=== PATIENT | female | born 1955 | race Caucasian/White ===

== ENCOUNTER → 2024-06-19 | Outpatient (CLI) | payer MEDICARE, SELFPAY ==
[2024-06-19 13:58] LABS: Basophils # (Auto) 0.1 Thou/mm3 (0.0-0.2); Basophils % (Auto) 1 % (0-2.5); Eosinophils # (Auto) 0.2 Thou/mm3 (0.0-0.5); Eosinophils % (Auto) 2 % (0-10); Hematocrit 42.5 % (36.0-46.0); Hemoglobin 14.2 g/dL (12.0-16.0); Immature Granulocytes % (Auto) 0 % (0-0); Immature Granulocytes Auto 0.03 Thou/mm3 (0.00-0.00); Lymphocytes # (Auto) 2.1 Thou/mm3 (1.0-4.8); Lymphocytes % (Auto) 22 % (10-50); Mean Corpuscular HGB Conc 33.4 g/dl (31.0-37.0); Mean Corpuscular Hemoglobin 29.3 pg (25.0-35.0); Mean Corpuscular Volume 88 fL (80-100); Monocytes # (Auto) 0.8 Thou/mm3 (0.0-0.8); Monocytes % (Auto) 9 % (0-12); Neutrophils # (Auto) 6.2 Thou/mm3 (1.8-7.7); Neutrophils % (Auto) 66 % (37-80); Nucleated Red Blood Cell % 0 /100 WBC (0); Platelet Count 290 Thou/mm3 (140-440); RDW Standard Deviation 44.3 fL (36.4-46.3); Red Blood Count 4.85 Miln/mm3 (4.00-5.20); White Blood Count 9.4 Thou/mm3 (3.6-11.0)
[2024-06-19 14:27] LABS: CA 15-3 26.1 U/mL (<32.4); Carcinoembryonic Antigen < 0.5 ng/mL (0.0-5.0)
[2024-06-19 14:34] LABS: Alanine Aminotransferase 38 U/L (10-49); Albumin, Serum 3.8 gm/dL (3.4-4.8); Albumin/Globulin Ratio 1.4 (1.2-2.2); Anion Gap 7 (7-16); Aspartate Amino Transferase 21 U/L (0-34); BUN/Creatinine Ratio 25 Ratio (12-20); Bilirubin,Total 0.4 mg/dL (0.3-1.2); Blood Urea Nitrogen 20 mg/dL (9-23); Calcium (Corrected) 9.2 mg/dL (8.5-10.1); Carbon Dioxide 27.4 mMol/L (20.0-31.0); Chloride 108 mMol/L (98-107); Creatinine (Component) 0.8 mg/dL (0.6-1.3); Globulin 2.7 gm/dL (2.3-3.5); Glucose 136 mg/dL (74-106); Osmolality,Calculated 287 (275-295); Potassium 3.7 mMol/L (3.4-5.1); Sodium 142 mMol/L (136-145); Total Protein 6.5 gm/dL (5.7-8.2); eGFR > 60 See Note
[2024-06-19 14:53] LABS: Alkaline Phosphatase 93 U/L (46-116)
== END | disposition home or self-care (01) ==
LOC: COPL 12:21 → SCTO 12:27
PROVIDERS: PCP Nurse Practitioner Family; Referring Provider Nurse Practitioner Family; Visit Provider Nurse Practitioner Family
DX: C50.111 Malignant neoplasm of central portion of right female breast (principal); C50.912 Malignant neoplasm of unspecified site of left female breast
CPT/HCPCS: 36415; 80053; 82378; 85025; 86300

== ENCOUNTER 2024-06-21 11:16 | Outpatient (RCR) | payer MEDICARE, SELFPAY | END 2024-06-22 23:59 | disposition home or self-care (01) | LOC: SCTC 11:16 | PROVIDERS: PCP Physician Assistant; Referring Provider Physician Assistant; Visit Provider Nurse Practitioner Family | DX: C50.912 Malignant neoplasm of unspecified site of left female breast (principal); Z17.0 Estrogen receptor positive status [ER+]; Z17.21 Progesterone receptor positive status; Z17.32 Human epidermal growth factor receptor 2 negative status; Z79.811 Long term (current) use of aromatase inhibitors; R91.8 Other nonspecific abnormal finding of lung field; R05.9 Cough, unspecified; M85.89 Other specified disorders of bone density and structure, multiple sites; Z90.13 Acquired absence of bilateral breasts and nipples | CPT/HCPCS: 99212; G0463 ==

== ENCOUNTER → 2024-07-17 | Outpatient (CLI) | payer MEDICARE, SELFPAY ==
--- NOTE | 2024-07-17 12:40 | XR_ITS ---
Examination: Bone densitometry Date and time of exam:July 17, 2024 1317 hours INDICATIONS: Menopause age 49, postmenopausal shoulder fracture 2 years ago, personal history osteopenia Vitamin D 2 years Technique: Lumbar spine and hip total bone mineralization values of an calculated. Peak reference and age match control results have been displayed. Findings: Lumbar spine total bone mineralization is0.901 gm/cm2. This is 1.3 standard deviations below peak reference. This is 0.8 standard deviations above age-matched controls. Hip total bone mineralization is 0.873 gm/cm2 This is 0.6 standard deviations below peak reference. This is 0.9 standard deviations above age-matched controls Impression: There is osteopenia based on lumbar spine measurements. There is osteopenia based on hip measurements Lumbar mineralization is increased 11.1% compared with October 18, 2021 Hip mineralization is increased 3.1% compared with October 18, 2021
== END | disposition home or self-care (01) ==
PROVIDERS: PCP Physician Assistant; Referring Provider Nurse Practitioner Family; Visit Provider Nurse Practitioner Family
DX: M85.89 Other specified disorders of bone density and structure, multiple sites (principal); C50.111 Malignant neoplasm of central portion of right female breast
CPT/HCPCS: 77080

== ENCOUNTER 2024-08-20 09:06 | Outpatient (AMB) | payer MEDICARE, SELFPAY ==
[2024-08-20 09:30] VITALS: BP 146/83; PULSE 83; RESP 18; TEMP 36.5; O2SAT 98; BMI 30.9
--- NOTE | 2024-08-20 09:30 | PD.GSCLVISIT ---
[facility] - [facility] 08/20/24 09:30 Height 1.57 m Height Method Stated Weight 76.657 kg Weight Measurement Method Standing Scale BMI 30.9 BP 146/83 H Blood Pressure Source Automatic Cuff Blood Pressure Location Right Upper Arm Position Sitting Respiration 18 Pulse 83 Pulse Source Monitor Temp 97.7 F Temp Source Temporal Artery Scan Pulse Oximetry (%) 98 Oxygen Delivery Method Room Air Med/Allergies Allergies & Medications Allergies tioconazole Allergy (Intermediate, Verified 08/20/24 09:31) ITCHING,BURNING Medication Reconciliation anastrozole 1 mg tablet 1 mg PO QDAY 08/20/24 [History Confirmed 08/20/24] atorvastatin 40 mg tablet 40 mg PO QDAY 08/20/24 [History Confirmed 08/20/24] cholecalciferol (vitamin D3) 10 mcg (400 unit) capsule 10 mcg PO QDAY 08/20/24 [History Confirmed 08/20/24] omeprazole 20 mg capsule,delayed release 20 mg PO QDAY 08/20/24 [History Confirmed 08/20/24] semaglutide 0.25 mg or 0.5 mg (2 mg/3 mL) subcutaneous pen injector (Ozempic) 0.25 mg subcut QWEEK 08/20/24 [History Confirmed 08/20/24] MA Intake Visit Data Collection New Patient or Established: Established Patient (seen at [facility] within 3 years) Reason for Visit:: REFERRAL FOR CONSTIPATION Pain Present Currently: No Pain scale:: 0 Pain Scale Used: Rajan-Dejesus/Numerical Certified Residential Medication Aide Required: Yes PCP or OBGYN visit in last 3 months: Yes Hx Now: No Do You Feel Safe at Home: Yes Authorities Contacted: N/A Smoking Status Smoking Status: Never smoker Immunization / Flu Flu Vaccine in the Last 12 Months: Yes Flu Vaccine Exclusion Criteria: Already Received Past Medical History Past Medical History CARDIAC: Positive Hypercholesterolemia; Negative Congestive Heart Failure RESPIRATORY: Negative Chronic Obstructive Pulmonary Disease (COPD) GENITOURINARY: Negative Renal Disease ENDOCRINE: Negative Diabetes Mellitus Type 1 or Diabetes Mellitus Type 2 Surgical History SURGICAL: Positive Mastectomy (LEFT WITH LYMPH REMOVAL IN 2012, RIGHT PREVENTATIVE 2017) Social History SMOKING STATUS: Smoking status: Never smoker HPI HPI Narrative 68F referred for +FOBT. Pt states she had a colonoscopy 10-11 years ago which she was told was normal. The FOBT was done for screening purposes and she denies any recent changes in bowel habits, blood in stool, anorexia and unintentional weight loss. She did recently begin ozempic and is attempting to lose weight with lifestyle changes PMH: HLD, breast CA PSHx: Bilateral mastectomy 2014 (pt states she had CA in only one breast but she had mastectomy on the other side for cosmetic reasons and she undergoes regular surveillance), Csection, foot surgery Meds: Anastrozole, atorvastatin, vitamin D3, omeprazole, ozempic Allergies: Tioconazole Family hx: No known CRC ROS Review of Systems Systems Reviewed: All systems reviewed, normal except as documented Objective/Exam General General Appearance: alert, cooperative and well groomed Resp Respiratory exam: Absent respiratory distress Assessment & Plan Diagnosis / Problem List (1) Encounter for screening colonoscopy: Status: Acute Assessment & Plan: 68F with average risk for colon CA referred for +FOBT. I explained benefits/risks of colonoscopy including bleeding, perforation requiring emergency surgery and the possibility of needing to abort prematurely for safety. I also explained conscious sedation and prep; pt recalls taking golytely with difficulty so I offered miralax prep. All questions were answered and pt agrees to proceed Advanced Care Planning Advance care planning discussed with:: patient Office Procedures GNS Level of Care Nursing/Assessment Patient Status: Established Patient Nursing Assessment/Reassesment: Medication Reconciliation, Update PMH in EMR and Vital Signs Coordination of Care: Complex Care and Chronic Disease 1-5, Education Complex Pt/Fam, Consent,records obtained, informed consent, Results/Orders obtained and Staff clarify orders Established Patient Charge Established Patient Point Assignment: 95 Established Patient Point Charge: EP Level 3 (80-115) Patient Portal Questionaires Social History Tobacco History Smoking Status: Never smoker Domestic Abuse History Do You Feel Safe at Home: Yes Review of Systems Report any current symptoms Only answer those that you have currently: Past Medical History Past Medical History Have you ever been diagnosed with any of the following: Cardiology Problems Hypercholesterolemia: Yes Congestive Heart Failure: No Respiratory Problems Chronic Obstructive Pulmonary Disease (COPD): No Genital/Urinary Problems Renal Disease: No Endocrine Problems Diabetes Mellitus Type 1: No Diabetes Mellitus Type 2: No
== END 2024-08-20 10:19 | disposition home or self-care (01) ==
LOC: HODSRG 09:06
PROVIDERS: PCP Physician Assistant; Referring Provider Physician Assistant; Supervising Provider Surgery; Visit Provider Surgery
DX: Z12.11 Encounter for screening for malignant neoplasm of colon (principal)
CPT/HCPCS: 99213; G0463

== ENCOUNTER 2024-08-20 14:36 | Outpatient (RCR) | payer MEDICARE, SELFPAY | END 2024-08-22 23:59 | disposition home or self-care (01) | LOC: SCTC 14:36 | PROVIDERS: PCP Physician Assistant; Referring Provider Physician Assistant; Visit Provider Nurse Practitioner Family | DX: Z53.8 Procedure and treatment not carried out for other reasons (principal); C50.912 Malignant neoplasm of unspecified site of left female breast | CPT/HCPCS: J0897 ==

== ENCOUNTER → 2024-08-21 | Outpatient (CLI) | payer MEDICARE, SELFPAY ==
[2024-08-14 11:24] LABS: Basophils # (Auto) 0.1 Thou/mm3 (0.0-0.2); Basophils % (Auto) 1 % (0-2.5); Eosinophils # (Auto) 0.1 Thou/mm3 (0.0-0.5); Eosinophils % (Auto) 2 % (0-10); Hemoglobin 14.4 g/dL (12.0-16.0); Immature Granulocytes % (Auto) 0 % (0-0); Immature Granulocytes Auto 0.03 Thou/mm3 (0.00-0.00); Lymphocytes # (Auto) 2.1 Thou/mm3 (1.0-4.8); Lymphocytes % (Auto) 25 % (10-50); Mean Corpuscular HGB Conc 33.5 g/dl (31.0-37.0); Mean Corpuscular Hemoglobin 29.1 pg (25.0-35.0); Mean Corpuscular Volume 87 fL (80-100); Monocytes # (Auto) 0.6 Thou/mm3 (0.0-0.8); Monocytes % (Auto) 7 % (0-12); Neutrophils # (Auto) 5.3 Thou/mm3 (1.8-7.7); Neutrophils % (Auto) 65 % (37-80); Nucleated Red Blood Cell % 0 /100 WBC (0); Platelet Count 261 Thou/mm3 (140-440); RDW Standard Deviation 43.9 fL (36.4-46.3); Red Blood Count 4.94 Miln/mm3 (4.00-5.20); White Blood Count 8.1 Thou/mm3 (3.6-11.0)
[2024-08-14 12:05] LABS: CA 15-3 33.4 U/mL (<32.4); Carcinoembryonic Antigen < 0.0 ng/mL (0.0-5.0)
[2024-08-14 12:10] LABS: Alanine Aminotransferase 28 U/L (10-49); Albumin/Globulin Ratio 1.4 (1.2-2.2); Alkaline Phosphatase 80 U/L (46-116); Anion Gap 3 (7-16); Aspartate Amino Transferase 19 U/L (0-34); BUN/Creatinine Ratio 19 Ratio (12-20); Bilirubin,Total 0.6 mg/dL (0.3-1.2); Blood Urea Nitrogen 19 mg/dL (9-23); Calcium 9.3 mg/dL (8.3-10.6); Calcium (Corrected) 9.3 mg/dL (8.5-10.1); Carbon Dioxide 24.7 mMol/L (20.0-31.0); Chloride 112 mMol/L (98-107); Globulin 2.9 gm/dL (2.3-3.5); Glucose 113 mg/dL (74-106); Osmolality,Calculated 282 (275-295); Potassium 4.2 mMol/L (3.4-5.1); Sodium 140 mMol/L (136-145); Total Protein 6.9 gm/dL (5.7-8.2); eGFR > 60 See Note
--- NOTE | 2024-08-21 11:30 | XR_ITS ---
Examination: CT chest with intravenous contrast 2-D sagittal and coronal reconstructions Exam date and time: August 21, 2024 1101 hours Comparison November 16, 2023 INDICATIONS: Diagnosis malignant neoplasm central portion right female breast, lung nodules on CT chest November 16, 2023 and June 07, 2023, bilateral breasts mastectomy 2012 CTDI:vol (mGy) 12 DLP: (mGycm) 457 Technique: Multiple axial sections of the thorax have been obtained. Sections have been obtained, 3 mm slice thickness. Mediastinal and lung density settings have been obtained. Intravenous contrast administered, 60 cc Isovue-370. 2-D sagittal, coronal images obtained. Low dose protocols were performed. One or more of the following dose reduction techniques were used; automated exposure control, adjustment of the mA and/or KV according to patient size, use of iterative reconstruction technique. Findings: No thoracic aortic aneurysmal dilatation No pulmonary artery filling defects Mild calcification left anterior descending coronary artery No paratracheal tracheobronchial or bronchopulmonary adenopathy Stable bilateral pulmonary nodules, no new pulmonary nodules No pneumonia or pulmonary edema, no pleural disease Severe diffuse fatty infiltration throughout the liver Contracted gallbladder No pancreatic or adrenal mass IMPRESSION: Stable bilateral pulmonary nodules, no new pulmonary nodules No interval pneumonia or pulmonary edema or pleural disease
== END | disposition home or self-care (01) ==
PROVIDERS: PCP Physician Assistant; Referring Provider Nurse Practitioner Family; Visit Provider Nurse Practitioner Family
DX: R91.8 Other nonspecific abnormal finding of lung field (principal); C50.111 Malignant neoplasm of central portion of right female breast
CPT/HCPCS: 36415; 71260; 80053; 82378; 85025; 86300; A4649; Q9967

== ENCOUNTER → 2024-09-11 | Outpatient (CLI) | payer MEDICARE, SELFPAY ==
[2024-09-11 12:20] LABS: Basophils # (Auto) 0.1 Thou/mm3 (0.0-0.2); Basophils % (Auto) 1 % (0-2.5); Eosinophils # (Auto) 0.2 Thou/mm3 (0.0-0.5); Eosinophils % (Auto) 2 % (0-10); Hematocrit 41.2 % (36.0-46.0); Hemoglobin 14.3 g/dL (12.0-16.0); Immature Granulocytes % (Auto) 0 % (0-0); Immature Granulocytes Auto 0.03 Thou/mm3 (0.00-0.00); Lymphocytes # (Auto) 1.8 Thou/mm3 (1.0-4.8); Lymphocytes % (Auto) 23 % (10-50); Mean Corpuscular HGB Conc 34.7 g/dl (31.0-37.0); Mean Corpuscular Hemoglobin 29.4 pg (25.0-35.0); Mean Corpuscular Volume 85 fL (80-100); Monocytes # (Auto) 0.6 Thou/mm3 (0.0-0.8); Monocytes % (Auto) 8 % (0-12); Neutrophils # (Auto) 5.2 Thou/mm3 (1.8-7.7); Neutrophils % (Auto) 66 % (37-80); Nucleated Red Blood Cell % 0 /100 WBC (0); Platelet Count 285 Thou/mm3 (140-440); RDW Standard Deviation 41.7 fL (36.4-46.3); Red Blood Count 4.87 Miln/mm3 (4.00-5.20); White Blood Count 7.9 Thou/mm3 (3.6-11.0)
[2024-09-11 12:54] LABS: Alanine Aminotransferase 31 U/L (10-49); Albumin, Serum 3.8 gm/dL (3.4-4.8); Albumin/Globulin Ratio 1.5 (1.2-2.2); Alkaline Phosphatase 100 U/L (46-116); Anion Gap 7 (7-16); Aspartate Amino Transferase 20 U/L (0-34); BUN/Creatinine Ratio 20 Ratio (12-20); Bilirubin,Total 0.5 mg/dL (0.3-1.2); Blood Urea Nitrogen 20 mg/dL (9-23); Calcium 8.9 mg/dL (8.3-10.6); Calcium (Corrected) 9.1 mg/dL (8.5-10.1); Carbon Dioxide 27.9 mMol/L (20.0-31.0); Chloride 109 mMol/L (98-107); Globulin 2.6 gm/dL (2.3-3.5); Glucose 145 mg/dL (74-106); Osmolality,Calculated 292 (275-295); Sodium 144 mMol/L (136-145); Total Protein 6.4 gm/dL (5.7-8.2); eGFR > 60 See Note
[2024-09-11 13:12] LABS: CA 15-3 26.2 U/mL (<32.4); Carcinoembryonic Antigen < 0.0 ng/mL (0.0-5.0)
== END | disposition home or self-care (01) ==
LOC: SCTO 11:43
PROVIDERS: PCP Physician Assistant; Referring Provider Nurse Practitioner Family; Visit Provider Nurse Practitioner Family
DX: C50.111 Malignant neoplasm of central portion of right female breast (principal)
CPT/HCPCS: 36415; 80053; 82378; 85025; 86300

== ENCOUNTER 2024-09-12 14:57 | Outpatient (RCR) | payer MEDICARE, SELFPAY | END 2024-09-22 23:59 | disposition home or self-care (01) | LOC: SCTC 14:57 | PROVIDERS: PCP Physician Assistant; Referring Provider Physician Assistant; Visit Provider Nurse Practitioner Family | DX: C50.912 Malignant neoplasm of unspecified site of left female breast (principal); Z17.0 Estrogen receptor positive status [ER+]; Z17.21 Progesterone receptor positive status; Z17.32 Human epidermal growth factor receptor 2 negative status; Z90.13 Acquired absence of bilateral breasts and nipples; R91.8 Other nonspecific abnormal finding of lung field; Z79.811 Long term (current) use of aromatase inhibitors; M85.89 Other specified disorders of bone density and structure, multiple sites | CPT/HCPCS: 99212; G0463 ==

== ENCOUNTER 2024-10-09 08:05 | Day surgery (SDC) | payer MEDICARE, SELFPAY ==
[2024-10-09] VITALS (9 sets, daily range): BP systolic 119–154; BP diastolic 44–97; PULSE 67–80; RESP 12–17; TEMP 36.1–36.4; O2SAT 95–100; BMI 30.3
[2024-10-09] MEDS: RINGERS LACTATED 1000 ML 1,000 ML 20 ML IV (09:41)
[2024-10-09] MEDS: MIDAZOLAM INJ 1 MG/ML VIAL 2 ML (ASD USE ONLY) 2 MG IVP (09:41)
[2024-10-09] MEDS: fentaNYL CIT INJ 50 mCg/ML AMP 2ML (ASD USE ONLY) IVP (09:41)
[2024-10-09] MEDS: DiphenhydrAMINE INJ 50 MG/ML VIAL 25 MG IVP (09:41)
== END 2024-10-09 11:00 | disposition home or self-care (01) ==
PROVIDERS: PCP Physician Assistant; Referring Provider Surgery; Visit Provider Surgery
PROC: 0DBE8ZX Excision of Large Intestine, Via Natural or Artificial Opening Endoscopic, Diagnostic (ICD-10-PCS; CPT 45380; principal; 2024-10-09 11:30)
DX: K64.8 Other hemorrhoids (principal); K57.31 Diverticulosis of large intestine without perforation or abscess with bleeding
CPT/HCPCS: 45378; J1200; J2250; J3010; J7120

== ENCOUNTER 2024-10-15 10:55 | Outpatient (AMB) | payer MEDICARE, SELFPAY ==
[2024-10-15 11:05] VITALS: BP 140/84; PULSE 71; RESP 19; TEMP 36.3; O2SAT 97; BMI 29.9
--- NOTE | 2024-10-15 11:05 | GSCOFFNT_ITS ---
Vital Signs - [facility] 10/15/24 11:05 Height 1.57 m Height Method Stated Weight 73.936 kg Weight Measurement Method Standing Scale BMI 29.9 BP 140/84 H Blood Pressure Source Automatic Cuff Blood Pressure Location Left Upper Arm Position Sitting Respiration 19 Pulse 71 Pulse Source Monitor Temp 97.4 F Temp Source Temporal Artery Scan Pulse Oximetry (%) 97 Oxygen Delivery Method Room Air Med/Allergies Allergies & Medications Allergies tioconazole Allergy (Intermediate, Verified 10/15/24 11:06) ITCHING,BURNING Medication Reconciliation anastrozole 1 mg tablet 1 mg PO QDAY 08/20/24 [History Confirmed 10/15/24] atorvastatin 40 mg tablet 40 mg PO QDAY 08/20/24 [History Confirmed 10/15/24] cholecalciferol (vitamin D3) 10 mcg (400 unit) capsule 10 mcg PO QDAY 08/20/24 [History Confirmed 10/15/24] omeprazole 20 mg capsule,delayed release 20 mg PO QDAY 08/20/24 [History Confirmed 10/15/24] semaglutide 0.25 mg or 0.5 mg (2 mg/3 mL) subcutaneous pen injector (Ozempic) 0.25 mg subcut QWEEK 08/20/24 [History Confirmed 10/15/24] MA Intake Visit Data Collection New Patient or Established: Established Patient (seen at [facility] within 3 years) Seen by Clinical Staff ONLY (RN/MA): No Reason for Visit:: COLONOSCOPY FOLLOW UP Pain Present Currently: No PCP or OBGYN visit in last 3 months: Yes Smoking Status Smoking Status: Never smoker Immunization / Flu Flu Vaccine in the Last 12 Months: No Flu Vaccine Exclusion Criteria: No Exclusion Criteria Past Medical History Past Medical History NEUROLOGIC: Negative Neurological Disorders or Seizures CARDIAC: Positive Cardiac Disorders and Hypercholesterolemia; Negative Congestive Heart Failure RESPIRATORY: Negative Chronic Obstructive Pulmonary Disease (COPD) GASTROINTESTINAL: Positive Gastrointestinal Disorders, Gastrointestinal Bleed (+fobt) and Gastroesophageal Reflux Disease GENITOURINARY: Negative Genitourinary Disorders or Renal Disease REPRODUCTIVE: Positive Breast Cancer and Previous Pregnancies ENDOCRINE: Positive Endocrine Disorders and Diabetes Mellitus Type 2; Negative Diabetes Mellitus Type 1 HEMATOLOGIC: Negative Blood Disorders OTHER HISTORY: Positive Shingles, Radiation Therapy (2014), Chicken Pox, Mumps, Cancer and Breast Cancer; Negative Blood Transfusions, Anesthesia Reactions or Measles Surgical History SURGICAL: Positive Mastectomy (LEFT WITH LYMPH REMOVAL IN 2012, RIGHT PREVENTATIVE 2017) and Section Social History SMOKING STATUS: Smoking status: Never smoker ALCOHOL: Alcohol Intake: Never HPI HPI Narrative 69F s/p colonoscopy 09/2024 for +FOBT here to discuss results. Pt reports feeling very well today, she has no complaints and reports being very pleased with her experience during the colonoscopy, has kindly recommended her friends to see me for the same ROS Review of Systems Systems Reviewed: All systems reviewed, normal except as documented Objective/Exam General General Appearance: alert, cooperative and well groomed Resp Respiratory exam: Absent respiratory distress Results Colonoscopy report reviewed Assessment & Plan Diagnosis / Problem List (1) Encounter to discuss colonoscopy results: Status: Acute Assessment & Plan: 69F s/p colonoscopy for +FOBT with findings of diverticulosis and internal hemorrhoids which are asymptomatic. Due to fair prep I recommended repeat surveillance in 7-10 years. All questions were answered and pt is agreeable to this plan Advanced Care Planning Advance care planning discussed with:: patient Office Procedures GNS Level of Care Nursing/Assessment Patient Status: Established Patient Nursing Assessment/Reassesment: Medication Reconciliation, Update PMH in EMR and Vital Signs Coordination of Care: Complex Care and Chronic Disease 1-5, Consent,records obtained, informed consent, Education Simp Pt/Fam, Results/Orders obtained and Staff clarify orders Established Patient Charge Established Patient Point Assignment: 90 Established Patient Point Charge: EP Level 3 (80-115) Patient Portal Questionaires Social History Tobacco History Smoking Status: Never smoker Alcohol History Alcohol Intake: Never Review of Systems Report any current symptoms Only answer those that you have currently: Past Medical History Past Medical History Have you ever been diagnosed with any of the following: Neurological Problems Seizures: No Cardiology Problems Hypercholesterolemia: Yes Congestive Heart Failure: No Respiratory Problems Chronic Obstructive Pulmonary Disease (COPD): No Stomache/Intestinal Problems Gastrointestinal Bleed: Yes (+fobt) Gastroesophageal Reflux Disease: Yes Genital/Urinary Problems Renal Disease: No Reproductive Problems Breast Cancer: Yes Previous Pregnancies: Yes Endocrine Problems Diabetes Mellitus Type 1: No Diabetes Mellitus Type 2: Yes Other Problems Shingles: Yes Blood Transfusions: No Anesthesia Reactions: No Radiation Therapy: Yes (2014) Chicken Pox: Yes Measles: No Mumps: Yes Cancer: Yes
== END 2024-10-15 11:34 | disposition home or self-care (01) ==
LOC: HODSRG 10:55
PROVIDERS: Supervising Provider Surgery; Visit Provider Surgery
DX: Z71.2 Person consulting for explanation of examination or test findings (principal); K57.90 Diverticulosis of intestine, part unspecified, without perforation or abscess without bleeding; K64.8 Other hemorrhoids
CPT/HCPCS: 99213; G0463

== ENCOUNTER → 2025-01-03 | Outpatient (CLI) | payer MEDICARE, SELFPAY ==
[2025-01-03 11:41] LABS: Basophils # (Auto) 0.1 Thou/mm3 (0.0-0.2); Basophils % (Auto) 1 % (0-2.5); Eosinophils # (Auto) 0.1 Thou/mm3 (0.0-0.5); Eosinophils % (Auto) 2 % (0-10); Hematocrit 44.8 % (36.0-46.0); Hemoglobin 15.1 g/dL (12.0-16.0); Immature Granulocytes Auto 0.02 Thou/mm3 (0.00-0.00); Lymphocytes # (Auto) 2.2 Thou/mm3 (1.0-4.8); Lymphocytes % (Auto) 24 % (10-50); Mean Corpuscular HGB Conc 33.7 g/dl (31.0-37.0); Mean Corpuscular Hemoglobin 29.6 pg (25.0-35.0); Mean Corpuscular Volume 88 fL (80-100); Monocytes # (Auto) 0.6 Thou/mm3 (0.0-0.8); Monocytes % (Auto) 7 % (0-12); Neutrophils # (Auto) 6.0 Thou/mm3 (1.8-7.7); Neutrophils % (Auto) 67 % (37-80); Nucleated Red Blood Cell # 0.00 Thou/mm3 (0.00-0.00); Nucleated Red Blood Cell % 0 /100 WBC (0); Platelet Count 303 Thou/mm3 (140-440); RDW Standard Deviation 45.8 fL (36.4-46.3); Red Blood Count 5.10 Miln/mm3 (4.00-5.20); White Blood Count 9.0 Thou/mm3 (3.6-11.0)
== END | disposition home or self-care (01) ==
LOC: COPL 11:00
PROVIDERS: PCP Physician Assistant; Referring Provider Student in an Organized Health Care Education/Training Program; Visit Provider Student in an Organized Health Care Education/Training Program
DX: M20.40 Other hammer toe(s) (acquired), unspecified foot (principal)
CPT/HCPCS: 36415; 80053; 85025

== ENCOUNTER → 2025-01-04 | Outpatient (CLI) | payer MEDICARE, SELFPAY ==
[2025-01-04 16:07] LABS: Alanine Aminotransferase 29 U/L (10-49); Albumin, Serum 4.0 gm/dL (3.4-4.8); Albumin/Globulin Ratio 1.6 (1.2-2.2); Alkaline Phosphatase 127 U/L (46-116); Anion Gap 11 (7-16); Aspartate Amino Transferase 22 U/L (0-34); BUN/Creatinine Ratio 16 Ratio (12-20); Bilirubin,Total 0.5 mg/dL (0.3-1.2); Blood Urea Nitrogen 14 mg/dL (9-23); Calcium 9.8 mg/dL (8.3-10.6); Calcium (Corrected) 9.8 mg/dL (8.5-10.1); Carbon Dioxide 26.3 mMol/L (20.0-31.0); Chloride 108 mMol/L (98-107); Creatinine (Component) 0.9 mg/dL (0.6-1.3); Globulin 2.5 gm/dL (2.3-3.5); Glucose 117 mg/dL (74-106); Osmolality,Calculated 290 (275-295); Potassium 3.9 mMol/L (3.4-5.1); Sodium 145 mMol/L (136-145); Total Protein 6.5 gm/dL (5.7-8.2); eGFR > 60 See Note
== END | disposition home or self-care (01) ==
LOC: COPL 14:24
PROVIDERS: PCP Physician Assistant; Referring Provider Student in an Organized Health Care Education/Training Program; Visit Provider Student in an Organized Health Care Education/Training Program
DX: M20.40 Other hammer toe(s) (acquired), unspecified foot (principal)
CPT/HCPCS: 36415; 80053

== ENCOUNTER → 2025-02-26 | Outpatient (CLI) | payer MEDICARE, SELFPAY ==
[2025-02-26 15:05] LABS: Basophils # (Auto) 0.1 Thou/mm3 (0.0-0.2); Basophils % (Auto) 1 % (0-2.5); Eosinophils # (Auto) 0.2 Thou/mm3 (0.0-0.5); Eosinophils % (Auto) 2 % (0-10); Hematocrit 42.0 % (36.0-46.0); Hemoglobin 14.2 g/dL (12.0-16.0); Immature Granulocytes Auto 0.04 Thou/mm3 (0.00-0.00); Lymphocytes # (Auto) 2.6 Thou/mm3 (1.0-4.8); Lymphocytes % (Auto) 24 % (10-50); Mean Corpuscular HGB Conc 33.8 g/dl (31.0-37.0); Mean Corpuscular Hemoglobin 29.3 pg (25.0-35.0); Mean Corpuscular Volume 87 fL (80-100); Monocytes # (Auto) 0.7 Thou/mm3 (0.0-0.8); Monocytes % (Auto) 7 % (0-12); Neutrophils # (Auto) 7.1 Thou/mm3 (1.8-7.7); Neutrophils % (Auto) 66 % (37-80); Nucleated Red Blood Cell # 0.00 Thou/mm3 (0.00-0.00); Nucleated Red Blood Cell % 0 /100 WBC (0); Platelet Count 320 Thou/mm3 (140-440); RDW Standard Deviation 43.6 fL (36.4-46.3); Red Blood Count 4.84 Miln/mm3 (4.00-5.20); White Blood Count 10.8 Thou/mm3 (3.6-11.0)
[2025-02-26 15:26] LABS: Alanine Aminotransferase 22 U/L (10-49); Albumin, Serum 4.3 gm/dL (3.4-4.8); Albumin/Globulin Ratio 1.9 (1.2-2.2); Alkaline Phosphatase 131 U/L (46-116); Anion Gap 12 (7-16); Aspartate Amino Transferase 19 U/L (0-34); BUN/Creatinine Ratio 15 Ratio (12-20); Bilirubin,Total 0.4 mg/dL (0.3-1.2); Blood Urea Nitrogen 15 mg/dL (9-23); Calcium 9.8 mg/dL (8.3-10.6); Calcium (Corrected) 9.8 mg/dL (8.5-10.1); Carbon Dioxide 25.5 mMol/L (20.0-31.0); Chloride 111 mMol/L (98-107); Creatinine (Component) 1.0 mg/dL (0.6-1.3); Globulin 2.3 gm/dL (2.3-3.5); Glucose 147 mg/dL (74-106); Osmolality,Calculated 298 (275-295); Potassium 3.7 mMol/L (3.4-5.1); Sodium 148 mMol/L (136-145); Total Protein 6.6 gm/dL (5.7-8.2); eGFR > 60 See Note
[2025-02-26 15:39] LABS: CA 15-3 28.8 U/mL (<32.4); Carcinoembryonic Antigen < 0.0 ng/mL (0.0-5.0)
== END | disposition home or self-care (01) ==
LOC: SCTO 14:20
PROVIDERS: PCP Physician Assistant; Referring Provider Nurse Practitioner Family; Visit Provider Nurse Practitioner Family
DX: C50.111 Malignant neoplasm of central portion of right female breast (principal)
CPT/HCPCS: 36415; 80053; 82378; 85025; 86300

== ENCOUNTER 2025-02-27 10:59 | Outpatient (RCR) | payer MEDICARE, SELFPAY | END 2025-03-24 23:59 | disposition home or self-care (01) | LOC: SCTC 10:59 | PROVIDERS: PCP Physician Assistant; Referring Provider Physician Assistant; Visit Provider Nurse Practitioner Family | DX: C50.912 Malignant neoplasm of unspecified site of left female breast (principal); Z17.0 Estrogen receptor positive status [ER+]; Z17.21 Progesterone receptor positive status; Z17.32 Human epidermal growth factor receptor 2 negative status; Z90.12 Acquired absence of left breast and nipple; Z79.811 Long term (current) use of aromatase inhibitors; R91.8 Other nonspecific abnormal finding of lung field; R05.9 Cough, unspecified; M85.80 Other specified disorders of bone density and structure, unspecified site | CPT/HCPCS: 99212; G0463 ==

== ENCOUNTER → 2025-04-09 | Outpatient (CLI) | payer MEDICARE, SELFPAY ==
--- NOTE | 2025-04-09 13:00 | XR_ITS ---
Examination: CT chest with intravenous contrast CT chest without intravenous contrast 2-D reconstructions Date and time of exam: April 09, 2025, 1525 hours, comparison August 21, 2024 INDICATIONS: Diagnosis malignant neoplasm of central portion right female breast, bilateral pulmonary nodules noted on August 21, 2024, November 16, 2023, 2023, December 21, 2022 CTDI:vol (mGy) 22.4 DLP: (mGycm) 757 Technique: Multiple axial sections of the thorax have been obtained. 3 mm slice thickness, from the hemidiaphragms to above the apices of the lungs. Mediastinal and lung density settings have been obtained. Intravenous contrast administered 60 cc Isovue-370. Noncontrast images have also been obtained. 2-D sagittal coronal images obtained. Low dose protocols were performed. One or more of the following dose reduction techniques were used; automated exposure control, adjustment of the mA and/or KV according to patient size, use of iterative reconstruction technique. Findings: No thoracic aortic aneurysm dilatation Pulmonary artery segments are not enlarged No pulmonary artery filling defects No interval mediastinal Stable bilateral pulmonary nodules Slightly larger probable left breast seroma adjacent surgical clips No new pulmonary nodules Diffuse fatty infiltration throughout the liver, no visualized liver or splenic lesions No gallstones No pancreatic or adrenal mass Kidneys partially visualized no hydronephrosis IMPRESSION: Stable pulmonary nodules, no new pulmonary nodules Recommend left breast sonography follow-up to confirm left breast seroma
[2025-04-09 13:42] LABS: Basophils # (Auto) 0.1 Thou/mm3 (0.0-0.2); Basophils % (Auto) 1 % (0-2.5); Eosinophils # (Auto) 0.2 Thou/mm3 (0.0-0.5); Eosinophils % (Auto) 2 % (0-10); Hematocrit 44.4 % (36.0-46.0); Hemoglobin 14.6 g/dL (12.0-16.0); Immature Granulocytes Auto 0.04 Thou/mm3 (0.00-0.00); Lymphocytes # (Auto) 2.4 Thou/mm3 (1.0-4.8); Lymphocytes % (Auto) 26 % (10-50); Mean Corpuscular HGB Conc 32.9 g/dl (31.0-37.0); Mean Corpuscular Hemoglobin 29.1 pg (25.0-35.0); Mean Corpuscular Volume 88 fL (80-100); Monocytes # (Auto) 0.8 Thou/mm3 (0.0-0.8); Monocytes % (Auto) 9 % (0-12); Neutrophils # (Auto) 5.8 Thou/mm3 (1.8-7.7); Neutrophils % (Auto) 62 % (37-80); Nucleated Red Blood Cell # 0.00 Thou/mm3 (0.00-0.00); Nucleated Red Blood Cell % 0 /100 WBC (0); Platelet Count 296 Thou/mm3 (140-440); RDW Standard Deviation 45.1 fL (36.4-46.3); Red Blood Count 5.02 Miln/mm3 (4.00-5.20); White Blood Count 9.3 Thou/mm3 (3.6-11.0)
[2025-04-09 14:03] LABS: Alanine Aminotransferase 32 U/L (10-49); Albumin, Serum 4.6 gm/dL (3.4-4.8); Albumin/Globulin Ratio 1.6 (1.2-2.2); Alkaline Phosphatase 146 U/L (46-116); Anion Gap 8 (7-16); Aspartate Amino Transferase 21 U/L (0-34); BUN/Creatinine Ratio 16 Ratio (12-20); Bilirubin,Total 0.4 mg/dL (0.3-1.2); Blood Urea Nitrogen 14 mg/dL (9-23); Calcium 9.8 mg/dL (8.3-10.6); Calcium (Corrected) 9.8 mg/dL (8.5-10.1); Carbon Dioxide 27.3 mMol/L (20.0-31.0); Chloride 108 mMol/L (98-107); Creatinine (Component) 0.9 mg/dL (0.6-1.3); Globulin 2.8 gm/dL (2.3-3.5); Glucose 94 mg/dL (74-106); Osmolality,Calculated 285 (275-295); Potassium 4.1 mMol/L (3.4-5.1); Sodium 143 mMol/L (136-145); Total Protein 7.4 gm/dL (5.7-8.2); eGFR > 60 See Note
[2025-04-09 14:56] LABS: CA 15-3 31.2 U/mL (<32.4); Carcinoembryonic Antigen < 0.0 ng/mL (0.0-5.0)
== END | disposition home or self-care (01) ==
PROVIDERS: PCP Physician Assistant; Referring Provider Nurse Practitioner Family; Visit Provider Nurse Practitioner Family
DX: R91.8 Other nonspecific abnormal finding of lung field (principal); C50.111 Malignant neoplasm of central portion of right female breast
CPT/HCPCS: 36415; 71270; 80053; 82378; 85025; 86300; A4649; Q9967